=== PATIENT | female | born 2000 | race Two or more races ===

== ENCOUNTER 2021-11-04 09:14 | Emergency (ER) | payer OTHER ==
[~2021-11-04] VITALS: Ht 160 cm; Wt 63.3 kg
--- NOTE | 2021-11-04 09:57 | PHYS DOC ---
Past Medical History Past Medical History: Asthma General Adult EDM: Chief Complaint: HAND PROBLEM HPI: HPI: Patient is a 21-year-old female presenting via POV for right hand injury. Injury onset was half hour prior to arrival while at work. 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 Reports crushtype injury occurred on dorsal portion of right hand. She has had focal pain without radiation ever since. She has not taken anything for the pain. Denies any changes in motor or sensory or neuro function just admits ongoing focal pain prompting her to come in for evaluation. Only other medical issue is asthma for which she takes daily maintenance inhalers, this has been at baseline. No other noteworthy symptoms reported Review of Systems: Review of Systems: Fourteen body systems of review of systems have been reviewed. See HPI for pertinent positives and negative responses, other louise all other systems are negative, non-pertinent or non-contributory Heart Score: C/O Chest Pain: No Risk Factors: Risk Factors: DM, Current or recent (<one month) smoker, HTN, HLP, family history of CAD, obesity. Risk Scores: Score 0 - 3: 2.5% MACE over next 6 weeks - Discharge Home Score 4 - 6: 20.3% MACE over next 6 weeks - Admit for Clinical Observation Score 7 - 10: 72.7% MACE over next 6 weeks - Early Invasive Strategies Allergies: Allergies: Allergies Coded Allergies Type Severity Reaction Last Updated Verified No Known Drug Allergies 11/04/21 No Physical Exam: PE: Constitutional: Well developed, well nourished, no acute distress, non-toxic appearance. HENT: Normocephalic, atraumatic, bilateral external ears normal, oropharynx moist, no oral exudates, nose normal. Eyes: PERRLA, EOMI, conjunctiva normal, no discharge. Neck: Normal range of motion, no tenderness, supple, no stridor. Cardiovascular: Heart rate regular per monitor Lungs & Thorax: No respiratory distress or accessory muscle use, bilateral chest rise Abdomen: Abdomen soft, non-tender, bowel sounds present in all quadrants, no guarding or rebound, nonacute abdomen. Skin: Warm, dry, no erythema, no rash. Back: No tenderness, no CVA tenderness. Extremities: No cyanosis, no clubbing, ROM intact. Obvious visible and palpable abnormality present to right hand thenar eminence, no scaphoid tenderness with palpation, 2+ radial pulses bilaterally, isolation of the each digit unremarkable, formal evaluations of remaining fingers, wrist, soft compartments and elbow of right upper extremity unremarkable Neurologic: Alert and oriented X 3, medial radial and ulnar nerves of bilateral upper extremities intact normal motor & sensory function, no focal deficits noted. Psychologic: Affect normal, judgement normal, mood normal. Current Patient Data: Labs: Current Medications Medications (Trade) Dose Ordered Sig/[place] Route PRN Reason Start Time Stop Time Status Last Admin Dose Admin Ibuprofen (Motrin) 800 mg 1X ONCE PO 11/04/21 10:00 11/04/21 10:01 DC 11/04/21 10:03 Vital Signs: Vital Signs Date Time Temp Pulse Resp B/P (MAP) Pulse Ox O2 Delivery O2 Flow Rate FiO2 11/04/21 09:40 97.7 54 16 104/66 (79) 97 Room Air 97.7 Vital Signs Date Time Temp Pulse Resp B/P (MAP) Pulse Ox O2 Delivery O2 Flow Rate FiO2 11/04/21 13:15 57 16 115/67 (83) 98 Room Air 11/04/21 09:40 97.7 97.7 EKG: EKG: [] Radiology/Procedures: Radiology/Procedures: EXAM: Right hand, 3 views. HISTORY: Crush injury. COMPARISON: None. FINDINGS: 3 views of the right hand are obtained. There is no fracture, dislocation or subluxation. There is no foreign body. IMPRESSION: No acute osseous finding. Electronically signed by: Natasha Felipe MD (11/04/2021 10:13 AM) [id number] Course & Med Decision Making: Course & Med Decision Making ABCs unremarkable HPI physical exam and radiograph of left hand nonconcerning for any emergent or surgical she is I disclosed likely diagnosis of contusion for patient who remains motor, sensory, and neurovascularly intact Discussed role of supportive care that should include ibuprofen and Tylenol for pain in addition to ice and compression as needed Close outpatient follow-up for condition advised with strict return precautions discussed at length Jaxon Disclaimer: Jaxon Disclaimer: This electronic medical record was generated, in whole or in part, using a voice recognition dictation system. Departure Departure Impression: Primary Impression: Contusion of left hand Disposition: HOME / SELF CARE / HOMELESS Condition: STABLE Patient Instructions: RICE - Routine Care for Injuries Additional Instructions: You were seen for right hand pain. Your pain is most likely due to a contusion of your right hand and should improve with ibuprofen and/or Tylenol, ice, stretching, and activity. If it does not improve you should follow up with a primary care doctor. You should return to the ED if you develop worsening pain, fever, numbness, tingling, weakness, or any other new or concerning s ymptoms. Scripts Ibuprofen (IBUPROFEN) 600 Mg Tablet 600 MG PO PRN Q6HRS PRN for PAIN, #20 TAB take with food or milk Prov: FABIANA MUSTAFA DO 11/04/21 FABIANA MUSTAFA DO Nov 04, 2021 09:57
[2021-11-04] MEDS ORDERED: IBUPROFEN 400 MG TABLET. PO ONE (10:00)
--- NOTE | 2021-11-04 12:08 | RAD ---
EXAM: Right hand, 3 views. HISTORY: Crush injury. COMPARISON: None. FINDINGS: 3 views of the right hand are obtained. There is no fracture, dislocation or subluxation. T here is no foreign body. IMPRESSION: No acute osseous finding. Electronically signed by: Natasha Felipe MD (11/04/2021 10:13 AM) [id number]
[2021-11-04] MEDS ORDERED: IBUP-1007 PO (13:06)
[2021-11-04 13:15] VITALS: BP 115/67
== END 2021-11-04 13:14 | disposition home or self-care (01) ==
LOC: ER 09:14
DX: S60.221A Contusion of right hand, initial encounter (principal); W31.89XA Contact with other specified machinery, initial encounter; Y93.89 Activity, other specified; Y92.69 Other specified industrial and construction area as the place of occurrence of the external cause; Y99.0 Civilian activity done for income or pay
CPT/HCPCS: 73130; 99283